=== PATIENT | female | born 1950 | race Caucasian/White ===

== ENCOUNTER 2017-02-14 08:52 | Emergency (ER) | payer OTHER ==
[~2017-02-14] VITALS: Ht 160 cm; Wt 77.1 kg
[2017-02-14 10:18] LABS: Basophils # (auto) 0 uL; Basophils % (auto) 0.3 % (0.0-2.0); CONDITION Y; Eosinophils # (auto) 0 uL; Eosinophils % (auto) 0.4 % (0.0-7.0); Lymphocytes # (auto) 1.7 uL; Lymphocytes % (auto) 25.1 % (10.0-50.0); Mean Corpuscular Hgb Conc. 34.1 g/dL (32.0-36.0); Mean Corpuscular Volume 87.8 fL (80.0-100.0); Mean Platelet Volume 8.6 fL (6.9-10.8); Monocytes # (auto) 0.5 uL; Monocytes % (auto) 6.8 % (0.0-12.0); Neutrophils # (auto) 4.5 uL; Neutrophils % (auto) 67.4 % (37.0-80.0); Platelet Count (auto) 273 10^3/uL (140-450); Red Cell Distribution Width 13.6 % (11.8-14.3); White Blood Cell 6.7 10^3/uL (4.4-10.8)
[2017-02-14 10:30] LABS: Albumin 3.8 g/dL (3.4-5.0); Anion Gap 11 (5-15); Blood Urea Nitrogen 11 mg/dL (7-18); Calcium 9.5 mg/dL (8.5-10.1); Carbon Dioxide 22 mmol/L (21-32); Chloride 110 mmol/L (98-107); Glucose 105 mg/dL (74-106); Magnesium 2.6 mg/dL (1.6-2.6); Potassium 3.7 mmol/L (3.5-5.1); Sodium 143 mmol/L (136-145)
[2017-02-14 10:32] LABS: Aspartate Aminotransferase 12 U/L (15-37); BUN/Creatinine Ratio 14.5; GFR African American 97 mL/min; GFR Non-African American 80 mL/min
[2017-02-14 10:37] LABS: Alkaline Phosphatase 79 U/L (45-117); Bilirubin, Total 0.3 mg/dL (0.2-1.0); Total Protein 7.5 g/dL (6.4-8.2)
[2017-02-14] MEDS ORDERED: SODIUM CHLORIDE 0.9% 1,000 ML IV ONE (10:47)
[2017-02-14] MEDS ORDERED: MECLIZINE HCL 25 MG TAB PO ONE (11:00)
[2017-02-14 11:27] LABS: Urine Bilirubin Negative (Negative); Urine Blood Negative /uL (Negative); Urine Color Colorless (Yellow); Urine Glucose Normal (Normal); Urine Ketone Negative (Negative); Urine Nitrite Negative (Negative); Urine RBC 1 /hpf (0 - 4); Urine Squamous Epithelial Cell FEW /hpf (<5); Urine Urobilinogen Normal (Negative); Urine pH 7.5 (5.0-8.0)
[2017-02-14] MEDS ORDERED: cefTRIAXone 1GM/50ML D5W 50 ML IV ONE (12:45)
[2017-02-14 13:40] VITALS: BP 132/77
== END 2017-02-14 13:51 | disposition home or self-care (01) ==
LOC: ER 08:52
DX: T67.4XXA Heat exhaustion due to salt depletion, initial encounter (principal); N39.0 Urinary tract infection, site not specified; H81.10 Benign paroxysmal vertigo, unspecified ear; Z90.49 Acquired absence of other specified parts of digestive tract; X30.XXXA Exposure to excessive natural heat, initial encounter; Y93.89 Activity, other specified; Y92.89 Other specified places as the place of occurrence of the external cause; Y99.8 Other external cause status
CPT/HCPCS: 36415; 70450; 71020; 80053; 81001; 83735; 84443; 84484; 85025; 93005; 94761; 96361; 96365; 99285; J0696; J7030

== ENCOUNTER 2018-05-15 15:44 | Emergency (ER) | payer OTHER ==
[~2018-05-15] VITALS: Ht 160 cm; Wt 77.1 kg
[2018-05-15 16:07] VITALS: BP 154/70
[2018-05-15 17:10] LABS: Basophils # (auto) 0 uL; Basophils % (auto) 0.3 % (0.0-2.0); Eosinophils # (auto) 0 uL; Eosinophils % (auto) 0.4 % (0.0-7.0); Hematocrit 43.6 % (36.0-46.0); Hemoglobin 14.7 g/dL (12.2-16.2); Lymphocytes # (auto) 1.5 uL; Lymphocytes % (auto) 18.1 % (10.0-50.0); Mean Corpuscular Hemoglobin 29.7 pg (28.0-32.0); Mean Corpuscular Hgb Conc. 33.7 g/dL (32.0-36.0); Mean Corpuscular Volume 88.1 fL (80.0-100.0); Monocytes # (auto) 0.5 uL; Monocytes % (auto) 6.4 % (0.0-12.0); Neutrophils # (auto) 6.4 uL; Neutrophils % (auto) 74.8 % (37.0-80.0); Platelet Count (auto) 239 10^3/uL (140-450); Red Blood Cells 4.95 10^6/uL (4.0-5.20); Red Cell Distribution Width 13.4 % (11.8-14.3); White Blood Cell 8.5 10^3/uL (4.4-10.8)
[2018-05-15 17:26] LABS: Albumin 3.9 g/dL (3.4-5.0); Anion Gap 5 (5-15); Blood Urea Nitrogen 13 mg/dL (7-18); Carbon Dioxide 24 mmol/L (21-32); Chloride 110 mmol/L (98-107); Glucose 121 mg/dL (74-106); Potassium 3.8 mmol/L (3.5-5.1); Sodium 139 mmol/L (136-145)
[2018-05-15] MEDS ORDERED: IBUPROFEN 800 MG TAB PO ONE (17:30)
[2018-05-15 17:31] LABS: Alanine Aminotransferase 27 U/L (13-56); Alkaline Phosphatase 99 U/L (45-117); Aspartate Aminotransferase 14 U/L (15-37); BUN/Creatinine Ratio 16.3; Bilirubin, Total 0.4 mg/dL (0.2-1.0); GFR African American 91 mL/min; GFR Non-African American 76 mL/min; Total Protein 7.8 g/dL (6.4-8.2)
== END 2018-05-15 18:03 | disposition home or self-care (01) ==
LOC: ER 15:47
DX: S29.011A Strain of muscle and tendon of front wall of thorax, initial encounter (principal); Z88.5 Allergy status to narcotic agent; Z90.49 Acquired absence of other specified parts of digestive tract; W01.198A Fall on same level from slipping, tripping and stumbling with subsequent striking against other object, initial encounter; Y93.89 Activity, other specified; Y99.8 Other external cause status; Y92.89 Other specified places as the place of occurrence of the external cause
CPT/HCPCS: 36415; 71046; 80053; 84484; 85025; 93005

== ENCOUNTER 2018-08-07 15:47 | Emergency (ER) | payer OTHER ==
[~2018-08-07] VITALS: Ht 167.6 cm; Wt 54.4 kg
[2018-08-07 16:03] VITALS: BP 131/84
[2018-08-07] MEDS ORDERED: traMADol HCL 50 MG TAB PO ONE (17:30)
== END 2018-08-07 18:23 | disposition home or self-care (01) ==
LOC: EDBD 15:47 → ER 15:59
DX: S82.002A Unspecified fracture of left patella, initial encounter for closed fracture (principal); S63.502A Unspecified sprain of left wrist, initial encounter; Z90.49 Acquired absence of other specified parts of digestive tract; W01.198A Fall on same level from slipping, tripping and stumbling with subsequent striking against other object, initial encounter; Y93.89 Activity, other specified; Y99.8 Other external cause status; Y92.512 Supermarket, store or market as the place of occurrence of the external cause
CPT/HCPCS: 29125; 29505; 70450; 73100; 73560

== ENCOUNTER 2021-11-21 17:44 | Emergency (ER) | payer OTHER ==
[~2021-11-21] VITALS: Ht 160 cm; Wt 78.5 kg
[2021-11-21 18:39] LABS: Basophils # (auto) 0 10 ^3/uL (0-0.2); Basophils % (auto) 0.4 % (0.0-2.0); Eosinophils # (auto) 0 10 ^3/uL (0-0.8); Eosinophils % (auto) 0.1 % (0.0-7.0); Hematocrit 43.7 % (36.0-46.0); Hemoglobin 14.6 g/dL (12.2-16.2); Lymphocytes # (auto) 1.5 10 ^3/uL (0.4-5.4); Lymphocytes % (auto) 12.4 % (10.0-50.0); Mean Corpuscular Hemoglobin 29.2 pg (28.0-32.0); Mean Corpuscular Hgb Conc. 33.4 g/dL (32.0-36.0); Mean Corpuscular Volume 87.3 fL (80.0-100.0); Monocytes # (auto) 0.7 10 ^3/uL (0-1.3); Monocytes % (auto) 5.8 % (0.0-12.0); Neutrophils # (auto) 9.9 10 ^3/uL (1.6-8.6); Neutrophils % (auto) 81.3 % (37.0-80.0); Red Cell Distribution Width 13.7 % (11.8-14.3); White Blood Cell 12.2 10^3/uL (4.4-10.8)
[2021-11-21 18:49] LABS: Albumin 3.6 g/dL (3.4-5.0); Calcium 9.2 mg/dL (8.5-10.1); Potassium 3.7 mmol/L (3.5-5.1)
[2021-11-21 18:52] LABS: BUN/Creatinine Ratio 14.3; Bilirubin, Total 0.6 mg/dL (0.2-1.0); Total Protein 8.1 g/dL (6.4-8.2)
[2021-11-21] MEDS ORDERED: PROCHLORPERAZINE EDISYLATE 5 MG/ML 2ML VIAL IV ONE (19:15)
[2021-11-21] MEDS ORDERED: MORPHINE SULFATE 4 MG/ML SYR/VIAL IV ONE (19:15)
[2021-11-21] MEDS ORDERED: PANTOPRAZOLE 40 MG/10 ML VIAL INJ IV ONE (19:15)
[2021-11-21 21:05] VITALS: BP 159/89
== END 2021-11-21 21:08 | disposition home or self-care (01) ==
LOC: ER 17:44
DX: R10.13 Epigastric pain (principal); R11.2 Nausea with vomiting, unspecified; Z90.49 Acquired absence of other specified parts of digestive tract; Z90.710 Acquired absence of both cervix and uterus; Z88.5 Allergy status to narcotic agent
CPT/HCPCS: 36415; 74176; 80053; 82150; 83690; 84484; 85025; 93005; 96374; 96375; 99285; C9113; J0780

== ENCOUNTER 2024-01-25 09:32 | Emergency (ER) | payer OTHER ==
[~2024-01-25] VITALS: Ht 160 cm; Wt 78.0 kg
[2024-01-25 11:06] LABS: Urine Bacteria None Seen /hpf (None Seen)
[2024-01-25 11:11] LABS: Basophils # (auto) 0 10 ^3/uL (0-0.2); Basophils % (auto) 0.5 % (0.0-2.0); Eosinophils # (auto) 0 10 ^3/uL (0-0.8); Eosinophils % (auto) 0.5 % (0.0-7.0); Hematocrit 45.8 % (36.0-46.0); Hemoglobin 15.9 g/dL (12.2-16.2); Lymphocytes # (auto) 1.8 10 ^3/uL (0.4-5.4); Lymphocytes % (auto) 22.3 % (10.0-50.0); Mean Corpuscular Hemoglobin 30.3 pg (28.0-32.0); Mean Corpuscular Hgb Conc. 34.6 g/dL (32.0-36.0); Mean Corpuscular Volume 87.5 fL (80.0-100.0); Monocytes # (auto) 0.4 10 ^3/uL (0-1.3); Monocytes % (auto) 5.5 % (0.0-12.0); Neutrophils # (auto) 5.7 10 ^3/uL (1.6-8.6); Neutrophils % (auto) 71.2 % (37.0-80.0); Nucleated Red Blood Cells % 0.1 %; Platelet Count (auto) 264 10^3/uL (140-450); Red Blood Cells 5.23 10^6/uL (4.0-5.20); Red Cell Distribution Width 13.7 % (11.8-14.3)
[2024-01-25 11:20] LABS: Urine Blood Negative /uL (Negative); Urine Budding Yeast FEW /hpf (None Seen); Urine Clarity Turbid (Clear); Urine Color Colorless (Yellow); Urine Protein, UAD Negative (Negative); Urine Specific Gravity 1.006 (1.001-1.035); Urine Urobilinogen Normal (Negative); Urine WBC 63 /hpf (0 - 5); Urine WBC Clumps PRESENT /hpf (None Seen)
[2024-01-25 11:28] LABS: Alanine Aminotransferase 26 U/L (7-40); Albumin 4.4 g/dL (3.2-4.8); Alkaline Phosphatase 106 U/L (46-116); Anion Gap 8 (5-15); Aspartate Aminotransferase 15 U/L (13-40); BUN/Creatinine Ratio 10.5 (10.0-20.0); Bilirubin, Total 0.6 mg/dL (0.2-1.0); Blood Urea Nitrogen 8 mg/dL (9-23); Calcium 9.8 mg/dL (8.7-10.4); Carbon Dioxide 23 mmol/L (20-30); Chloride 110 mmol/L (98-107); Glucose 118 mg/dL (74-106); Potassium 3.2 mmol/L (3.5-5.1); Sodium 141 mmol/L (136-145)
[2024-01-25 11:29] LABS: Total Protein 7.7 g/dL (5.7-8.2)
[2024-01-25] MEDS ORDERED: CIPR-173 PO (13:52)
[2024-01-25] MEDS: CIPROFLOXACIN HCL 500 MG TAB PO ONE (14:15)
[2024-01-25 14:22] VITALS: BP 140/88; PULSE 88; RESP 16; TEMP 98.4; O2SAT 97
== END 2024-01-25 15:55 | disposition home or self-care (01) ==
LOC: ER 09:42
DX: N39.0 Urinary tract infection, site not specified (principal); R42 Dizziness and giddiness; R51.9 Headache, unspecified; M54.50 Low back pain, unspecified; Z87.442 Personal history of urinary calculi; Z90.49 Acquired absence of other specified parts of digestive tract; Z90.710 Acquired absence of both cervix and uterus
CPT/HCPCS: 36415; 70450; 80053; 81001; 84484; 85025; 93005